=== PATIENT | female | born 2005 | race Caucasian/White ===

== ENCOUNTER 2023-02-20 19:27 | Inpatient (IN) | payer OTHER ==
[~2023-02-20 19:27] MED LIST: Bupivacaine 0.25% HCL 30 ML VIAL ONE
[2023-02-20 19:53] VITALS: BMI 26.6
[2023-02-20] MEDS ORDERED: hydrALAZINE 20 MG/ML VIAL SLOW IVP PRN (20:25)
[2023-02-20] MEDS ORDERED: Methylergonovine 0.2 MG/ML VIAL IM PRN (20:25)
[2023-02-20] MEDS ORDERED: Misoprostol 200 MCG TAB PR PRN (20:25)
[2023-02-20] MEDS ORDERED: Ondansetron PF 4 MG/2 ML Vial IVP PRN (20:25)
[2023-02-20] MEDS ORDERED: Tranexamic Acid 1,000 MG/10 ML VIAL IVP PRN (20:25)
[2023-02-20] MEDS ORDERED: Promethazine HCl 25 MG/ML VIAL IM PRN (20:25)
[2023-02-20] MEDS ORDERED: NS w/ Oxytocin 30 units 500 ML IV SCH (20:30)
[2023-02-20] MEDS: Lactated Ringer's 1,000 ML IV SCH (21:40)
[2023-02-20 22:32] LABS: Hemoglobin 10.6 g/dL (12.0-15.5); Mean Corpuscular HGB CONC 32.8 g/dL (32.0-36.0); Mean Corpuscular Volume 82.2 fl (81.6-98.3); Mean Platelet Volume 11.6 fl (7.4-10.4); Platelet Count 217 10x3/uL (150-450); RBC Distribution Width 13.2 % (11.5-14.5); Red Blood Cell (RBC) Count 3.93 10x6/uL (3.90-5.03); White Blood Cell (WBC) Count 9.2 10x3/uL (3.5-10.5)
[2023-02-20 22:36] LABS: ALT (SGPT) 13 U/L (8-55); AST (SGOT) 18 U/L (5-30); Albumin 3.7 g/dL (3.5-5.0); Alkaline Phosphatase 187 U/L (40-100); Anion Gap 18 mmol/L (10-20); BUN (Urea Nitrogen) 7 mg/dL (8.4-21.0); Bilirubin, Total 0.4 mg/dL (0.2-1.2); Calc. Creatinine Clearance 159 mL/min (70-130); Carbon Dioxide 18 mmol/L (22-29); Chloride 105 mmol/L (98-107); Estimated GFR 130; Globulin 2.6 g/dL (2.4-3.5); Glucose 71 mg/dL (70-105); Potassium 3.9 mmol/L (3.5-5.1); Protein, Total 6.3 g/dL (6.0-8.3); Sodium 137 mmol/L (136-145)
[2023-02-20 22:40] LABS: Creatinine, Urine 154.95 mg/dL (47-110)
[2023-02-20 22:55] LABS: Hep B Surf Ag - L&D Non-Reactive S/CO (NonReactive); Syphilis Antibody Nonreactive (Nonreactive); Syphilis Antibody Index 0.07 S/CO (<1.00 Non-Reactive)
[2023-02-20] MEDS ORDERED: fentaNYL 50 mcg/mL 1 mL Vial SLOW IVP PRN (23:22)
[2023-02-21] MEDS ORDERED: fentaNYL/Ropivacaine Epidural 100 ML ONE (00:30)
[2023-02-21] MEDS: Lactated Ringer's 1,000 ML IV SCH ×2 (01:00→01:53)
[2023-02-21] MEDS ORDERED: Promethazine HCl 25 MG/ML VIAL IM PRN (01:07)
[2023-02-21] MEDS ORDERED: Ondansetron PF 4 MG/2 ML Vial IVP PRN ×2 (01:07→06:13)
[2023-02-21] MEDS ORDERED: Acetaminophen 325 MG TAB PO PRN (01:07)
[2023-02-21] MEDS ORDERED: Lactated Ringer's 500 ML IV PRN (01:07)
[2023-02-21] MEDS ORDERED: ePHEDrine Sulfate 50 MG/10 ML VIAL SLOW IVP PRN (01:07)
[2023-02-21] MEDS ORDERED: diphenhydrAMINE 50 MG/ML VIAL IVP PRN (01:07)
[2023-02-21] MEDS ORDERED: Naloxone HCl 0.4 mg/ml Vial IVP PRN ×2 (01:07)
[2023-02-21] MEDS ORDERED: Moisturizing Cream (Eucerin) 113 GM JAR TOP PRN (01:07)
[2023-02-21] MEDS ORDERED: fentaNYL 2 mcg/Ropivacaine 0.2% Epidural 100 ML CADD EPIDURAL SCH (01:15)
[2023-02-21] MEDS ORDERED: Communication Order-Pharmacy FS SCH (01:15)
[2023-02-21] MEDS ORDERED: Lidocaine 1% (PF) 30 ML VIAL ONE (05:30)
[2023-02-21] MEDS ORDERED: Milk Of Magnesia 30 ML UDCUP PO PRN (06:13)
[2023-02-21] MEDS ORDERED: Preparation H Ointment 28 GM TUBE PR PRN (06:13)
[2023-02-21] MEDS ORDERED: Boostrix 0.5 ML (Tdap) VIAL (>/=7 yrs of age) IM ONE (06:13)
[2023-02-21] MEDS ORDERED: Bisacodyl 10 MG SUPP PR PRN (06:13)
[2023-02-21] MEDS ORDERED: Lanolin Ointment 7 GM TUBE TOP PRN (06:13)
[2023-02-21] MEDS ORDERED: hydrALAZINE 20 MG/ML VIAL SLOW IVP PRN (06:13)
[2023-02-21] MEDS: Ferrous Sulfate 325 MG TAB PO SCH ×2 (09:03→15:35)
[2023-02-21] MEDS: Docusate 100 MG CAP PO SCH ×2 (09:08→21:30)
[2023-02-21] MEDS: Prenatal Vitamin 1 TAB PO SCH (09:09)
[2023-02-21] MEDS ORDERED: Benzocaine-Menthol 82.5 ML CAN TOP PRN (11:43)
[2023-02-21] MEDS: Ibuprofen 800 MG TAB PO SCH ×2 (12:57→21:30)
[2023-02-21] MEDS ORDERED: Acetaminophen 325 MG TAB PO SCH (16:15)
[2023-02-21] MEDS ORDERED: Ketorolac Tromethamine 30 MG/ML VIAL IVP SCH (16:15)
[2023-02-21] MEDS ORDERED: Acetaminophen 500 MG TAB PO SCH ×2 (16:45→20:15)
[2023-02-21] MEDS: Acetaminophen 500 MG TAB PO SCH (21:30)
[2023-02-22] MEDS: Acetaminophen 500 MG TAB PO SCH ×5 (01:55→21:10)
[2023-02-22 05:06] LABS: Mean Corpuscular HGB CONC 32.1 g/dL (32.0-36.0); Mean Corpuscular Hemoglobin 27.2 pg (27.0-33.0); Mean Corpuscular Volume 84.8 fl (81.6-98.3); Mean Platelet Volume 11.5 fl (7.4-10.4); Platelet Count 212 10x3/uL (150-450); RBC Distribution Width 13.6 % (11.5-14.5); Red Blood Cell (RBC) Count 3.68 10x6/uL (3.90-5.03); White Blood Cell (WBC) Count 9.5 10x3/uL (3.5-10.5)
[2023-02-22] MEDS: Ibuprofen 800 MG TAB PO SCH ×3 (06:02→21:10)
[2023-02-22] MEDS: Ferrous Sulfate 325 MG TAB PO SCH ×2 (07:23→17:24)
[2023-02-22] MEDS: Prenatal Vitamin 1 TAB PO SCH (08:10)
[2023-02-22] MEDS: Docusate 100 MG CAP PO SCH ×2 (08:10→21:10)
[2023-02-23] MEDS: Acetaminophen 500 MG TAB PO SCH ×5 (02:08→11:02)
[2023-02-23] MEDS: Ibuprofen 800 MG TAB PO SCH ×2 (05:12→13:22)
[2023-02-23] MEDS: Ferrous Sulfate 325 MG TAB PO SCH (07:10)
[2023-02-23] MEDS: Docusate 100 MG CAP PO SCH (07:56)
[2023-02-23] MEDS: Prenatal Vitamin 1 TAB PO SCH (07:56)
[2023-02-23 07:59] VITALS: BP 130/79; TEMP 98
== END 2023-02-23 16:30 | disposition home or self-care (01) | DRG 807 ==
LOC: CSHLD 19:27 → CSHPP 02-21 08:50
PROVIDERS: ADMIT Family Medicine; ATTEND Family Medicine
PROC: 10E0XZZ Delivery of Products of Conception, External Approach (ICD-10-PCS; principal; 2023-02-21)
PROC: 0UQMXZZ Repair Vulva, External Approach (ICD-10-PCS; 2023-02-21)
DX: O42.02 Full-term premature rupture of membranes, onset of labor within 24 hours of rupture (principal); Z37.0 Single live birth; O71.82 Other specified trauma to perineum and vulva; O99.52 Diseases of the respiratory system complicating childbirth; J45.909 Unspecified asthma, uncomplicated; O99.344 Other mental disorders complicating childbirth; F32.A Depression, unspecified; O13.4 Gestational [pregnancy-induced] hypertension without significant proteinuria, complicating childbirth; Z3A.40 40 weeks gestation of pregnancy; O48.0 Post-term pregnancy; Z90.89 Acquired absence of other organs; Z82.49 Family history of ischemic heart disease and other diseases of the circulatory system; O40.3XX0 Polyhydramnios, third trimester, not applicable or unspecified; O35.9XX0 Maternal care for (suspected) fetal abnormality and damage, unspecified, not applicable or unspecified
CPT/HCPCS: 36415; 51702; 80053; 82570; 84156; 85027; 86780; 86850; 86900; 86901; 87340; 99285; J2590; J3010; J7120; S0020

== ENCOUNTER 2024-05-20 17:33 | Observation (INO) | payer OTHER ==
[2024-05-20 18:06] VITALS: BMI 25.0
[2024-05-20] MEDS ORDERED: hydrALAZINE 20 MG/ML VIAL SLOW IVP PRN (18:55)
[2024-05-20 19:57] LABS: #Basophils 0.02 10x3/uL (0.0-0.2); #Eosinophils 0.04 10x3/uL (0.0-0.5); #Monocytes 0.89 10x3/uL (0.0-1.1); #Neutrophils 7.88 10x3/uL (1.5-8.4); %Basophils 0.2 % (0.0-2.0); %Eosinophils 0.4 % (0.0-6.0); %Lymphocytes 15.5 % (18.0-47.0); %Monocytes 8.5 % (0.0-10.0); %Neutrophils 74.7 % (40.0-75.0); Hematocrit 32.8 % (34.9-44.5); Hemoglobin 10.6 g/dL (12.0-15.5); Mean Corpuscular HGB CONC 32.3 g/dL (32.0-36.0); Mean Corpuscular Hemoglobin 27.7 pg (27.0-33.0); Mean Corpuscular Volume 85.9 fL (81.6-98.3); Mean Platelet Volume 10.7 fL (7.4-10.4); Platelet Count 232 10x3/uL (150-450); RBC Distribution Width 12.8 % (11.5-14.5); Red Blood Cell (RBC) Count 3.82 10x6/uL (3.90-5.03); White Blood Cell (WBC) Count 10.5 10x3/uL (3.5-10.5)
[2024-05-20 20:10] LABS: ALT (SGPT) 119 U/L (8-55); AST (SGOT) 193 U/L (5-34); Albumin 2.9 g/dL (3.5-5.0); Alkaline Phosphatase 182 U/L (40-110); Anion Gap 13 mmol/L (10-20); BUN (Urea Nitrogen) 5 mg/dL (7.0-18.7); Bilirubin, Total 1.3 mg/dL (0.2-1.2); Calc. Creatinine Clearance 162 mL/min (70-130); Calcium 9.4 mg/dL (7.8-10.44); Carbon Dioxide 21 mmol/L (22-29); Chloride 105 mmol/L (98-107); Estimated GFR 131; Globulin 3.8 g/dL (2.4-3.5); Glucose 80 mg/dL (70-105); Protein, Total 6.7 g/dL (6.0-8.3); Sodium 135 mmol/L (136-145)
[2024-05-20] MEDS: Acetaminophen 325 MG TAB PO SCH (20:41)
[2024-05-20] MEDS ORDERED: Bisacodyl 5 MG TAB PO PRN (22:09)
[2024-05-20] MEDS ORDERED: Acetaminophen 325 MG TAB PO PRN (22:09)
[2024-05-20] MEDS ORDERED: Ondansetron PF 4 MG/2 ML Vial IVP PRN (22:09)
[2024-05-20] MEDS ORDERED: Ondansetron ODT 4 MG TAB PO PRN (22:09)
[2024-05-21 04:38] LABS: ALT (SGPT) 134 U/L (8-55); AST (SGOT) 187 U/L (5-34); Albumin 2.7 g/dL (3.5-5.0); Alkaline Phosphatase 191 U/L (40-110); Anion Gap 14 mmol/L (10-20); BUN (Urea Nitrogen) 6 mg/dL (7.0-18.7); Bilirubin, Total 1.4 mg/dL (0.2-1.2); Calc. Creatinine Clearance 165 mL/min (70-130); Calcium 8.8 mg/dL (7.8-10.44); Carbon Dioxide 21 mmol/L (22-29); Chloride 106 mmol/L (98-107); Estimated GFR 132; Globulin 3.5 g/dL (2.4-3.5); Glucose 94 mg/dL (70-105); Potassium 3.5 mmol/L (3.5-5.1); Protein, Total 6.2 g/dL (6.0-8.3); Sodium 137 mmol/L (136-145)
[2024-05-21] MEDS: Acetaminophen 500 MG TAB PO PRN (04:41)
[2024-05-21 04:45] LABS: #Basophils 0.02 10x3/uL (0.0-0.2); #Eosinophils 0.07 10x3/uL (0.0-0.5); #Monocytes 1.01 10x3/uL (0.0-1.1); #Neutrophils 4.63 10x3/uL (1.5-8.4); %Basophils 0.3 % (0.0-2.0); %Eosinophils 0.9 % (0.0-6.0); %Lymphocytes 26.5 % (18.0-47.0); %Monocytes 12.8 % (0.0-10.0); %Neutrophils 58.5 % (40.0-75.0); Hematocrit 32.2 % (34.9-44.5); Hemoglobin 10.4 g/dL (12.0-15.5); Mean Corpuscular HGB CONC 32.3 g/dL (32.0-36.0); Mean Corpuscular Hemoglobin 27.4 pg (27.0-33.0); Mean Platelet Volume 10.9 fL (7.4-10.4); Platelet Count 216 10x3/uL (150-450); RBC Distribution Width 12.9 % (11.5-14.5); Red Blood Cell (RBC) Count 3.79 10x6/uL (3.90-5.03); White Blood Cell (WBC) Count 7.9 10x3/uL (3.5-10.5)
[2024-05-21] MEDS ORDERED: Lactated Ringer's 1,000 ML IV SCH (09:45)
[2024-05-21 15:59] VITALS: BP 112/63; TEMP 98.1
== END 2024-05-21 17:55 | disposition home or self-care (01) ==
LOC: CSHLD/OP 17:33 → INTOOBSV 22:09 → CSHLD 22:09 → CSHANTE 23:30
PROVIDERS: ADMIT Family Medicine; ATTEND Family Medicine
DX: O26.613 Liver and biliary tract disorders in pregnancy, third trimester (principal); K82.8 Other specified diseases of gallbladder; K80.20 Calculus of gallbladder without cholecystitis without obstruction; O99.013 Anemia complicating pregnancy, third trimester; O99.283 Endocrine, nutritional and metabolic diseases complicating pregnancy, third trimester; E80.7 Disorder of bilirubin metabolism, unspecified; O26.893 Other specified pregnancy related conditions, third trimester; R74.01 Elevation of levels of liver transaminase levels; O99.891 Other specified diseases and conditions complicating pregnancy; O99.513 Diseases of the respiratory system complicating pregnancy, third trimester; J45.20 Mild intermittent asthma, uncomplicated; Z98.890 Other specified postprocedural states; Z90.89 Acquired absence of other organs; Z79.899 Other long term (current) drug therapy; Z3A.32 32 weeks gestation of pregnancy
CPT/HCPCS: 36415; 74181; 76376; 76705; 80053; 83690; 85025; 99285; G0378

== ENCOUNTER 2024-07-10 19:00 | Inpatient (IN) | payer OTHER ==
[~2024-07-10 19:00] MED LIST changes: -Bupivacaine 0.25% HCL 30 ML VIAL ONE; +Bupivacaine HCl 0.5%/Epinephrine 1:200,000/PF 30 ml Vial ONE; +Bupivacaine/Epinephrine 0.25% 30 ML VIAL ONE
[2024-07-10 19:59] VITALS: BMI 26.6
[2024-07-10] MEDS ORDERED: Diphenoxylate HCl/Atropine Tablet PO PRN ×2 (20:44)
[2024-07-10] MEDS ORDERED: Ibuprofen 800 MG TAB PO PRN (20:44)
[2024-07-10] MEDS ORDERED: Lidocaine 1% (PF) 30 ML VIAL SC PRN (20:44)
[2024-07-10] MEDS ORDERED: Promethazine HCl 25 MG/ML VIAL IM PRN (20:44)
[2024-07-10] MEDS ORDERED: Acetaminophen 500 MG TAB PO PRN (20:44)
[2024-07-10] MEDS ORDERED: Ondansetron PF 4 MG/2 ML Vial IVP PRN (20:44)
[2024-07-10] MEDS ORDERED: Tranexamic Acid 1,000 MG/10 ML VIAL IVP PRN (20:44)
[2024-07-10] MEDS ORDERED: hydrALAZINE 20 MG/ML VIAL SLOW IVP PRN (20:44)
[2024-07-10] MEDS ORDERED: Misoprostol 200 MCG TAB PR PRN (20:44)
[2024-07-10] MEDS ORDERED: Oxytocin 30 units/NS 500 ML 500 ML IV SCH (20:45)
[2024-07-10] MEDS: Misoprostol 100 MCG TAB VAG SCH (21:25)
[2024-07-10 21:45] LABS: HBsAg Index 0.19 S/CO (0-0.99); Hep B Surf Ag - L&D Non-Reactive S/CO (NonReactive); Syphilis Antibody Nonreactive (Nonreactive); Syphilis Antibody Index 0.07 S/CO (<1.00 Non-Reactive)
[2024-07-10 21:54] LABS: Hematocrit 33.9 % (34.9-44.5); Hemoglobin 11.2 g/dL (12.0-15.5); Mean Corpuscular Hemoglobin 26.9 pg (27.0-33.0); Mean Corpuscular Volume 81.5 fL (81.6-98.3); Mean Platelet Volume 11.7 fL (7.4-10.4); Platelet Count 214 10x3/uL (150-450); RBC Distribution Width 14.2 % (11.5-14.5); Red Blood Cell (RBC) Count 4.16 10x6/uL (3.90-5.03); White Blood Cell (WBC) Count 8.4 10x3/uL (3.5-10.5)
[2024-07-11] MEDS: Oxytocin 30 units/NS 500 ML 500 ML IV SCH (08:29)
[2024-07-11] MEDS: fentaNYL/Ropivacaine Epidural 100 ML ONE (09:17)
[2024-07-11] MEDS ORDERED: Moisturizing Cream (Eucerin) 113 GM JAR TOP PRN (10:40)
[2024-07-11] MEDS ORDERED: Ondansetron PF 4 MG/2 ML Vial IVP PRN ×2 (10:40→15:36)
[2024-07-11] MEDS ORDERED: ePHEDrine Sulfate 50 MG/10 ML VIAL SLOW IVP PRN (10:40)
[2024-07-11] MEDS ORDERED: diphenhydrAMINE 50 MG/ML VIAL IVP PRN (10:40)
[2024-07-11] MEDS ORDERED: Lactated Ringer's 500 ML IV PRN (10:40)
[2024-07-11] MEDS ORDERED: Promethazine HCl 25 MG/ML VIAL IM PRN (10:40)
[2024-07-11] MEDS ORDERED: Naloxone HCl 0.4 mg/ml Vial IVP PRN ×2 (10:40)
[2024-07-11] MEDS ORDERED: Communication Order-Pharmacy FS SCH (10:45)
[2024-07-11] MEDS: fentaNYL 2 mcg/Ropivacaine 0.2% Epidural 100 ML CADD EPIDURAL SCH (14:52)
[2024-07-11] MEDS: Methylergonovine 0.2 MG/ML VIAL IM PRN (15:31)
[2024-07-11] MEDS ORDERED: hydrALAZINE 20 MG/ML VIAL SLOW IVP PRN (15:36)
[2024-07-11] MEDS ORDERED: Lanolin Ointment 7 GM TUBE TOP PRN (15:36)
[2024-07-11] MEDS ORDERED: Milk Of Magnesia 30 ML UDCUP PO PRN (15:36)
[2024-07-11] MEDS ORDERED: Bisacodyl 10 MG SUPP PR PRN (15:36)
[2024-07-11] MEDS: Carboprost 250 MCG/ML AMP ONE (18:42)
[2024-07-11] MEDS: Ferrous Sulfate 325 MG TAB PO SCH (18:43)
[2024-07-11] MEDS: Boostrix 0.5 ML (Tdap) VIAL (>/=7 yrs of age) IM ONE (19:21)
[2024-07-11] MEDS: Docusate 100 MG CAP PO SCH (21:35)
[2024-07-11] MEDS: Ibuprofen 800 MG TAB PO SCH (21:35)
[2024-07-11] MEDS: Acetaminophen 325 MG TAB PO PRN (23:43)
[2024-07-12] MEDS: Prenatal Vitamin 1 TAB PO SCH (08:17)
[2024-07-12 11:15] VITALS: BP 127/75; TEMP 98.2
== END 2024-07-12 16:25 | disposition home or self-care (01) | DRG 807 ==
LOC: CSHLD 19:42 → CSHPP 07-11 17:55
PROVIDERS: ADMIT Obstetrics & Gynecology; ATTEND Obstetrics & Gynecology
PROC: 10H07YZ Insertion of Other Device into Products of Conception, Via Natural or Artificial Opening (ICD-10-PCS; principal; 2024-07-11)
PROC: 10E0XZZ Delivery of Products of Conception, External Approach (ICD-10-PCS; 2024-07-11)
PROC: 10907ZC Drainage of Amniotic Fluid, Therapeutic from Products of Conception, Via Natural or Artificial Opening (ICD-10-PCS; 2024-07-11)
DX: O99.02 Anemia complicating childbirth (principal); Z37.0 Single live birth; O99.52 Diseases of the respiratory system complicating childbirth; J45.20 Mild intermittent asthma, uncomplicated; Z3A.39 39 weeks gestation of pregnancy; Z90.89 Acquired absence of other organs
CPT/HCPCS: 51702; 85027; 86780; 86850; 86900; 86901; 87340; J2210; J2590

== ENCOUNTER 2024-08-21 05:47 | Day surgery (SDC) | payer OTHER ==
[2024-08-16 15:10] VITALS: BMI 22.4
[2024-08-21] MEDS ORDERED: Bupivacaine/Epinephrine 0.25% 30 ML VIAL ONE (06:36)
[2024-08-21] MEDS ORDERED: CEFAZOLIN 2 GM VIAL ONE (06:36)
[2024-08-21] MEDS ORDERED: Ondansetron PF 4 MG/2 ML Vial ONE (07:04)
[2024-08-21] MEDS ORDERED: PROPOFOL 20 ML ONE (07:04)
[2024-08-21] MEDS ORDERED: fentaNYL 50 mcg/mL 1 mL Vial ONE ×3 (07:04→08:16)
[2024-08-21] MEDS ORDERED: Dexamethasone 4 mg/ml Vial ONE (07:04)
[2024-08-21] MEDS ORDERED: Lidocaine 1% PF 5 ML VIAL ONE (07:04)
[2024-08-21] MEDS ORDERED: ceFOXitin 1 GM VIAL ONE (07:08)
[2024-08-21] MEDS ORDERED: SUGAMMADEX SODIUM 200 MG/2 ML VIAL ONE (07:50)
[2024-08-21] MEDS ORDERED: Promethazine HCl 25 MG/ML VIAL ONE (08:20)
[2024-08-21] MEDS ORDERED: Meperidine HCl/PF 25 MG (1 mL) VIAL ONE (08:20)
[2024-08-21] MEDS ORDERED: HYDROcodone/Acetaminophen 5/325 mg Tablet ONE (10:53)
== END 2024-08-21 11:15 | disposition home or self-care (01) ==
LOC: CSHSDC 05:47
PROVIDERS: ATTEND Surgery
PROC: 0FT44ZZ Resection of Gallbladder, Percutaneous Endoscopic Approach (ICD-10-PCS; principal; 2024-08-21)
DX: O99.63 Diseases of the digestive system complicating the puerperium (principal); K80.10 Calculus of gallbladder with chronic cholecystitis without obstruction; O99.53 Diseases of the respiratory system complicating the puerperium; J45.909 Unspecified asthma, uncomplicated; O99.335 Smoking (tobacco) complicating the puerperium; F17.200 Nicotine dependence, unspecified, uncomplicated; Z90.89 Acquired absence of other organs; Z79.899 Other long term (current) drug therapy
CPT/HCPCS: 88304; C1889; J0694; J1100; J2175; J2405; J2550; J2704; J3010; S2900